=== PATIENT | female | born 1990 | race Two or more races ===

== ENCOUNTER 2019-11-06 10:05 | Emergency (ER) | payer BC, OTHER ==
[~2019-11-06] VITALS: Ht 165.1 cm; Wt 73.2 kg
[2019-11-06 12:53] VITALS: BP 107/63
== END 2019-11-06 12:54 | disposition home or self-care (01) ==
LOC: ER 10:05
DX: H60.92 Unspecified otitis externa, left ear (principal); J06.9 Acute upper respiratory infection, unspecified
CPT/HCPCS: 87804